=== PATIENT | female | born 1955 | race Caucasian/White ===

== ENCOUNTER 2016-10-18 02:14 | Emergency (ER) | payer OTHER ==
[2016-10-18 02:22] VITALS: TEMP 98.4
--- NOTE | 2016-10-18 03:54 | EDPHY ---
H & P Stated Complaint: fall the evening of 10/16/16, continued pain Time Seen by Provider: 10/18/16 02:46 HPI/ROS: HPI: The patient presents with a fall down 7 stairs which occurred 24 hours ago. She is not sure of the details exactly but fell forward landing on her right head and shoulder. She did not lose consciousness. She knows complaining of a mild headache, associated with nausea. She also has swelling around her right eye with right shoulder pain. She has no changes in her vision. REVIEW OF SYSTEMS Constitutional: No fever, no chills. Eyes: No discharge. ENT: No sore throat. Cardiovascular: No chest pain, no palpitations. Respiratory: No cough, no shortness of breath. Gastrointestinal: No abdominal pain, no vomiting. Genitourinary: No hematuria. Musculoskeletal: No back pain. Skin: No rashes. Neurological: + headache. PMHx: Heavy alcohol use TRAUMA PHYSICAL General Appearance: Alert, no distress Head: Right-sided periorbital ecchymoses Eyes: Pupils equal, round, reactive ENT, Mouth: No hemotypanium, no oral trauma Neck: Non- tender, trachea midline Respiratory: No chest wall tenderness, no subcutaneous air, lungs clear bilaterallty Cardiovascular: Regular rate and rhythm Abdomen: Abdomen is soft and non-tender, pelvis stable Skin: No lacerations, No abrasion Back: No midline T/L/S pain Extremities: Right shoulder is tender anteriorly with limited flexion in ABduction secondary to pain Neurological: A&Ox3, GCS=15,normal motor function with 5/5 strength in all 4 extremities, normal sensory exam Source: Patient Exam Limitations: No limitations - Personal History Current Tetanus/Diphtheria Vaccine: Unsure - Medical/Surgical History Hx Asthma: No Hx Chronic Respiratory Disease: No Hx Diabetes: No Hx Cardiac Disease: No Hx Renal Disease: No Hx Cirrhosis: No Hx Alcoholism: No Hx HIV/AIDS: No Hx Splenectomy or Spleen Trauma: No Other PMH: PSHx: breast ca with lumpectomy. PMHx: HTN - Social History Smoking Status: Never smoked Alcohol Use: Heavy Constitutional: Initial Vital Signs Temperature (C) 36.9 C 10/18/16 02:17 Heart Rate 70 10/18/16 02:17 Respiratory Rate 14 10/18/16 02:17 Blood Pressure 181/109 H 10/18/16 02:17 O2 Sat (%) 96 10/18/16 02:17 O2 Delivery Mode Room Air Allergies/Adverse Reactions: No Known Allergies Allergy (Unverified 04/20/14 09:13) Home Medications: Medication Instructions Recorded NK [No Known Home Meds] 10/18/16 Medical Decision Making Procedures: CT scan brain without contrast demonstrates 3 mm foci of hemorrhage in the right frontal lobe anteriorly, discussed with Dr. Rao of Radiology. CT maxillofacial shows small hematoma over right supraorbital region without fracture, small air-fluid level in the right maxillary sinus but no obvious fracture, discussed with Dr. Rao of Radiology. Right shoulder x-rays three views show no fracture, no dislocation, interpreted by me, radiology interpretation is pending. ED Course/Re-evaluation: The patient was monitored in the emergency room. CT head demonstrates a 3 mm punctate hemorrhage. This is discussed with Dr. Pollard of Neurosurgery. Given that the patient sustained the injury more than 24 hours ago and she is relatively asymptomatic, complaining only of a mild headache, she does not require inpatient admission for observation or repeat head CT. She is not on any blood thinners. I have explained this to her, she feels comfortable going home in the care of her partner who will watch her closely and bring her back if she is worse in any way. She also has right shoulder pain with a normal x-ray, I feel she may have a rotator cuff injury, and because of this I refer will refer her to Orthopedics. Differential Diagnosis: This is a 61-year-old female with history of alcohol abuse who had a fall down 7 stairs, last night, now with continued headache, nausea, right-sided periorbital ecchymoses, right shoulder pain. Differential diagnosis includes intracranial hemorrhage, subdural hematoma, zygomatic arch fracture, orbital wall fracture, shoulder fracture or dislocation. - Data Points Medications Given: Discontinued Medications Ibuprofen (Motrin) 600 mg PO EDNOW ONE Stop: 10/18/16 04:17 Last Admin: 10/18/16 04:25 Dose: 600 mg Departure - Departure Disposition: Home, Routine, Self-Care Clinical Impression: Periorbital ecchymosis of right eye, Right shoulder injury Intraparenchymal hematoma of brain Qualifiers: Qualifier Code: (S06.340A) Traumatic hemorrhage of right cerebrum without loss of consciousness, initial encounter Condition: Good Instructions: Concussion (ED), Rotator Cuff Injury (ED) Additional Instructions: For your headache, you can use ice, acetaminophen or ibuprofen as needed for pain. He should get plenty of rest. You should return to the emergency room if your worse in any way. He should follow up with your regular doctor in the next 2-3 days. For your shoulder, we are issue in you a sling which she should wear for the next few days. You can use ice on this as well. I have given you a referral to the orthopedic doctor formulation chemist for follow-up. Referrals: Kelechi Howell DO [Primary Care Provider] - As per Instructions Sumit Dubois MD [Medical Doctor] - As per Instructions
[2016-10-18] MEDS ORDERED: IBUPROFEN 600 MG TAB PO ONE (04:16)
[2016-10-18 04:27] VITALS: BP 191/108; PULSE 65; RESP 18; O2SAT 98
--- NOTE | 2016-10-18 09:02 | DX ---
Right Shoulder - Three Views Indication: Fall. Comparison: None. Findings: The bones are anatomically aligned. No fracture or joint space abnormality. The coracoclavi cular and acromioclavicular intervals are normal. Impression: Negative. No acute fracture or AC separation.
--- NOTE | 2016-10-18 16:14 | CT ---
CT Head, Without Contrast CT Facial Bones, Without Contrast CT Head History: Trauma with fall down stairs. Right periorbital swelling. Technique: Standard noncontrast head CT protocol utilizing axial images acquired through the [facility] um. Images were reconstructed down to 1.25-mm slice thickness as well. Radiation dose technique was u tilized. Findings: There is a tiny focus of increased density in the anterior right frontal lobe measuring 3 m m in the cortex suggesting a tiny focus of hemorrhage. No other findings for intracranial hemorrhage, mass, or infarct. The ventricles, sulci, and cisterns are mildly diffusely prominent. No evidence fo r an extraaxial fluid collection. No evidence for skull fracture. Soft tissue hematoma is seen in the right frontal region extending to the supraorbital region. No evidence for skull fracture. Impression: Probable tiny focus of intraparenchymal hemorrhage in the anterior right frontal lobe. So ft tissue swelling over the right frontal scalp without evidence for skull fracture. CT Facial Bones History: Trauma. Fall down stairs. Periorbital swelling and pain. Technique: 1.5 mm helical images were obtained of the facial bones without contrast. Multiplanar refo rmation was performed. Radiation dose reduction technique was utilized. Findings: Soft tissue hematoma is seen overlying the right supraorbital region. No evidence for orbit al fracture. There is an air-fluid level in the right maxillary sinus but a definite maxillary sinus fracture is not visualized. No other findings for facial bone fracture. Mild mucous membrane thickeni ng is seen in the paranasal sinuses. Impression: Small air-fluid level is seen in the right maxillary sinus but a facial bone fracture is not definitely visualized. Potentially this could be mild sinusitis or a subtle nondisplaced fracture not readily visible. There is mild underlying chronic sinus related change. Results discussed with Dr. Charlotte Sharp at 0349 hours. Final interpretation concurs with initial preliminary radiologist impression.
== END 2016-10-18 04:32 | disposition home or self-care (01) ==
DX: S06.340A Traumatic hemorrhage of right cerebrum without loss of consciousness, initial encounter (principal); S49.91XA Unspecified injury of right shoulder and upper arm, initial encounter; I10 Essential (primary) hypertension; Z85.3 Personal history of malignant neoplasm of breast; W10.8XXA Fall (on) (from) other stairs and steps, initial encounter

== ENCOUNTER → 2016-11-10 | Outpatient (CLI) | payer OTHER | LOC: CIMAGING 12:31 | PROVIDERS: ATTEND Psychiatry & Neurology Neurology | DX: I62.9 Nontraumatic intracranial hemorrhage, unspecified (principal); R29.810 Facial weakness ==

== ENCOUNTER → 2016-11-28 | Outpatient (CLI) | payer OTHER | LOC: FIMAGING 16:00 | DX: Z12.31 Encounter for screening mammogram for malignant neoplasm of breast (principal); Z85.3 Personal history of malignant neoplasm of breast | CPT/HCPCS: G0202 ==

== ENCOUNTER → 2018-03-17 | Outpatient (CLI) | payer OTHER | LOC: FIMAGING 13:39 | PROVIDERS: ATTEND Nurse Practitioner | DX: Z12.31 Encounter for screening mammogram for malignant neoplasm of breast (principal); Z85.3 Personal history of malignant neoplasm of breast; Z98.890 Other specified postprocedural states; Z80.3 Family history of malignant neoplasm of breast ==